=== PATIENT | female | born 1965 | race Caucasian/White ===

== ENCOUNTER → 2016-08-07 | Outpatient (CLI) | payer BC ==
[~2016-08-07] MED LIST: ALPR0.25 PO; CHOL100010 PO; ESCI1TAB10 PO; MULT-506 PO; TAMO20TA9 PO
== END | disposition home or self-care (01) ==
LOC: C.PAPS 11:31
PROVIDERS: ATTEND Obstetrics & Gynecology
DX: Z01.419 Encounter for gynecological examination (general) (routine) without abnormal findings (principal)